=== PATIENT | female | born 1975 | race Caucasian/White ===

== ENCOUNTER 2018-05-07 13:48 | Emergency (ER) | payer OTHER ==
[~2018-05-07] VITALS: Ht 149.9 cm; Wt 62.6 kg
[2018-05-07 13:52] VITALS: Ht 149.9 cm; Wt 62.6 kg
[2018-05-07 14:25] LABS: BASOPHIL % 0.3 % (0-2); PLATELET COUNT 275 x10^3mcL (130-400)
[2018-05-07 14:26] LABS: RED CELL DISTRIBUTION WIDTH 11.4 % (11.5-14.5)
[2018-05-07 15:27] LABS: CALCIUM 9.1 mg/dL (8.5-10.1); CARBON DIOXIDE 20.2 mmol/L (21-32); CHLORIDE SERUM 105 mmol/L (98-107); CREATININE SERUM 0.8 mg/dL (0.6-1.0); GFR1 > 60 mL/min; GLUCOSE SERUM 101 mg/dL (74-106); POTASSIUM SERUM 3.2 mmol/L (3.5-5.1); SODIUM SERUM 140 mmol/L (136-145)
[2018-05-07 15:31] LABS: ALBUMIN 3.9 g/dL (3.4-5.0); ALKALINE PHOSPHATASE 62 U/L (46-116); ALT/SGPT 22 U/L (14-59); AST/SGOT 14 U/L (15-37); BILIRUBIN TOTAL 0.3 mg/dL (0.20-1.00); TOTAL PROTEIN, SERUM 7.8 g/dL (6.4-8.2)
[2018-05-07 16:23] VITALS: BP 97/63
== END 2018-05-07 16:23 | disposition home or self-care (01) ==
LOC: ED 13:48
PROVIDERS: Emergency Medicine
DX: I45.6 Pre-excitation syndrome (principal)
CPT/HCPCS: 36415; J1885; Q0092

== ENCOUNTER 2019-02-01 13:40 | Emergency (ER) | payer OTHER ==
[~2019-02-01] VITALS: Ht 149.9 cm; Wt 64.0 kg
[2019-02-01 13:49] VITALS: BP 122/75; Ht 149.9 cm; Wt 64.0 kg
== END 2019-02-01 15:36 | disposition home or self-care (01) ==
LOC: ED 13:40
DX: K11.21 Acute sialoadenitis (principal)